=== PATIENT | female | born 1985 | race American Indian/Alaskan Native ===

== ENCOUNTER 2016-10-25 18:49 | Emergency (ER) | payer MEDICAID ==
[2016-10-25] MEDS ORDERED: TYLENOL PO ONE (19:03)
[2016-10-25] MEDS ORDERED: TYLENOL ONE (19:05)
[2016-10-25] MEDS ORDERED: MOTRIN PO ONE (22:56)
--- NOTE | 2016-10-25 23:10 | Emergency Department Report ---
- General Chief Complaint: Upper Respiratory Infection Stated Complaint: COUGH/FEVER/CONGESTION/SORE THROAT/CHILLS Time Seen by Provider: 10/25/16 22:43 Source: patient Mode of arrival: Ambulatory Limitations: No Limitations - History of Present Illness Initial Comments: 31-year-old female who presents with complaint of one week of fevers chills cough dysuria earache sore throat and generalized body aches. Denies shortness of breath denies any nausea or vomiting. Patient is awake alert and oriented 3 nontoxic-appearing speaking in full sentences. Denies any new rash denies any recent travel denies sick contacts at home. Onset/Timin -: week(s) Associated Symptoms: fever, chills - Related Data Previous Rx's Medication Instructions Recorded Last Taken Type Azithromycin [Zithromax Z-IRVING] 250 mg PO QDAY #6 tablet 10/25/16 Unknown Rx Ibuprofen [Motrin] 600 mg PO Q8H PRN #25 tablet 10/25/16 Unknown Rx Nitrofurantoin Mchenry/M-Cryst 100 mg PO Q12HR #14 capsule 10/25/16 Unknown Rx [Macrobid CAP] Allergies Allergy/AdvReac Type Severity Reaction Status Date / Time No Known Allergies Allergy Verified 10/25/16 18:53 ED Review of Systems ROS: Stated complaint: COUGH/FEVER/CONGESTION/SORE THROAT/CHILLS Other details as noted in HPI Constitutional: fever, malaise. denies: chills Eyes: denies: eye pain, eye discharge, vision change ENT: denies: ear pain, throat pain Respiratory: denies: cough, shortness of breath, wheezing Cardiovascular: denies: chest pain, palpitations Endocrine: no symptoms reported Gastrointestinal: denies: abdominal pain, nausea, diarrhea Genitourinary: denies: urgency, dysuria, discharge Musculoskeletal: denies: back pain, joint swelling, arthralgia Skin: denies: rash, lesions Neurological: denies: headache, weakness, paresthesias Psychiatric: denies: anxiety, depression Hematological/Lymphatic: denies: easy bleeding, easy bruising ED Past Medical Hx - Past Medical History Hx Psychiatric Treatment: Yes (ANXIETY) - Surgical History Past Surgical History?: No - Social History Smoking Status: Current Every Day Smoker Substance Use Type: Alcohol, Marijuana, Prescribed - Medications Home Medications: Home Medications Medication Instructions Recorded Confirmed Last Taken Type Azithromycin [Zithromax Z-IRVING] 250 mg PO QDAY #6 tablet 10/25/16 Unknown Rx Ibuprofen [Motrin] 600 mg PO Q8H PRN #25 tablet 10/25/16 Unknown Rx Nitrofurantoin Mchenry/M-Cryst 100 mg PO Q12HR #14 capsule 10/25/16 Unknown Rx [Macrobid CAP] ED Physical Exam - General Limitations: No Limitations General appearance: alert, in no apparent distress - Head Head exam: Present: atraumatic, normocephalic - Eye Eye exam: Present: normal appearance, PERRL, EOMI - ENT ENT exam: Present: mucous membranes moist - Neck Neck exam: Present: normal inspection - Respiratory Respiratory exam: Present: normal lung sounds bilaterally. Absent: respiratory distress - Cardiovascular Cardiovascular Exam: Present: regular rate, normal rhythm. Absent: systolic murmur, diastolic murmur, rubs, gallop - GI/Abdominal GI/Abdominal exam: Present: soft, normal bowel sounds - Extremities Exam Extremities exam: Present: normal inspection, full ROM - Back Exam Back exam: Present: normal inspection - Neurological Exam Neurological exam: Present: alert, oriented X3, CN II-XII intact, normal gait - Psychiatric Psychiatric exam: Present: normal affect, normal mood - Skin Skin exam: Present: warm, dry, intact, normal color. Absent: rash ED Course Vital Signs 10/25/16 10/25/16 10/26/16 18:56 19:08 00:01 Temperature 101.5 F H 100.3 F H Pulse Rate 107 H 99 H Respiratory 17 18 18 Rate Blood Pressure 122/68 Blood Pressure 120/77 [Left] O2 Sat by Pulse 100 99 Oximetry ED Medical Decision Making - Medical Decision Making A/P: Fever, chills, cough 1-patient was adamant that she needed to leave before I could finish my assessment. Based on patient's complaint of suprapubic pain she may have cystitis. I empirically prescribed Macrobid and also azithromycin as patient states she had productive cough and is a heavy smoker. 2-pt signed out AGAINST MEDICAL ADVICE I discussed the risks of leaving before I finished assessment in front of the nurse. Patient stated that she understood but had other matters to attend to and could not stay to finish her assessment. Lab results were not back yet at this time. Critical care attestation.: If time is entered above; I have spent that time in minutes in the direct care of this critically ill patient, excluding procedure time. ED Disposition Clinical Impression: Upper respiratory infection Qualifiers: URI type: unspecified viral URI Qualified Code(s): J06.9 - Acute upper respiratory infection, unspecified Disposition: LEFT AGAINST MEDICAL ADVICE Is pt being admited?: No Does the pt Need Aspirin: No Condition: Stable Instructions: Urinary Tract Infection in Women (ED), Acute Bronchitis (ED) Prescriptions: Azithromycin [Zithromax Z-IRVING] 250 mg PO QDAY #6 tablet Ibuprofen [Motrin] 600 mg PO Q8H PRN #25 tablet PRN Reason: Pain Nitrofurantoin Mchenry/M-Cryst [Macrobid CAP] 100 mg PO Q12HR #14 capsule Referrals: [facility] [Outside] - 3-5 Days ORVILLE JOHANSEN MD [Staff Physician] - 3-5 Days Forms: AMA Form
[2016-10-25 23:55] LABS: Bilirubin,Urine NEG (Negative); Blood,Urine NEG (Negative); Ketones,Urine 20 mg/dL (Negative); Leukocyte Esterase,Urine LG (Negative); Nitrite,Urine NEG (Negative); Protein,Urine <15 mg/dL mg/dL (Negative); Urobilinogen,Urine < 2.0 mg/dL (<2.0)
[2016-10-26 00:02] VITALS: BP 120/77
--- NOTE | 2016-10-26 09:33 | XRay Report ---
Chest 2 views: History: Fever/cough/congestion. Findings: Normal cardiomediastinal silhouette. Trachea is midline. No consolidation, pneumothorax or pleural effusion. Impression: No acute cardiopulmonary findings.
== END 2016-10-26 00:02 | disposition left against medical advice (07) ==
LOC: ED 18:49
DX: J06.9 Acute upper respiratory infection, unspecified (principal); F17.200 Nicotine dependence, unspecified, uncomplicated; F12.10 Cannabis abuse, uncomplicated
CPT/HCPCS: 71020; 81001; 81025; 87086